=== PATIENT | female | born 1965 | race American Indian/Alaskan Native ===

== ENCOUNTER 2016-10-10 16:10 | Outpatient (CLI) | payer OTHER ==
--- NOTE | 2016-10-11 07:10 | XRay Report ---
Lumbar spine 3 views: History: RA,low back pain. Findings: There is osteopenia. Normal height of vertebral bodies and intervertebral disc. Sclerotic articular surfaces. No fracture. No soft tissue calcification. Impression: Early degenerative changes lumbar spine.
== END 2016-10-10 16:11 | disposition home or self-care (01) ==
LOC: XRAY 16:10
PROVIDERS: ATTEND Internal Medicine
DX: M47.896 Other spondylosis, lumbar region (principal); M85.88 Other specified disorders of bone density and structure, other site; M06.88 Other specified rheumatoid arthritis, vertebrae; M81.0 Age-related osteoporosis without current pathological fracture; F32.9 Major depressive disorder, single episode, unspecified; G89.29 Other chronic pain; I10 Essential (primary) hypertension
CPT/HCPCS: 72100